=== PATIENT | male | born 1980 | race American Indian/Alaskan Native ===

== ENCOUNTER 2017-04-15 15:06 | Emergency (ER) | payer OTHER ==
[2017-04-15 15:14] VITALS: BP 141/70
[2017-04-15] MEDS ORDERED: TETRACAINE 0.5% OU ONE (17:21)
[2017-04-15] MEDS ORDERED: FUL-GLO OP ONE (17:21)
--- NOTE | 2017-04-15 17:26 | Emergency Department Report ---
Eye Injury/Foreign Body - HPI Eye Symptoms: Eye Pain: Yes, Blurred Vision: No, Eye Redness: Yes, Grinding/ Hammering Metal: No, Used Eye Protection: No, Contact Lens Use: No, Recalls Injury: No, Photophobia: No Other History: he is a 36-year-old male who presents complaining of left eye redness and pain times a couple days. Patient states he was seen up [facility] in [place] who diagnosed him with herpertic shingles in eyes and given eye drops and told to follow up with opthalmologist. Patient states he nothing fell or flew into his eyes. States he is here to get an technical data analyst referral. ED Review of Systems ROS: Stated complaint: EYE RED Other details as noted in HPI Constitutional: denies: chills, fever Eyes: eye pain, eye discharge, other. denies: vision change ENT: denies: ear pain, throat pain, dental pain, congestion Respiratory: denies: cough, shortness of breath, wheezing Cardiovascular: denies: chest pain, palpitations Endocrine: no symptoms reported Gastrointestinal: denies: abdominal pain, nausea, vomiting, diarrhea Genitourinary: denies: urgency, dysuria Musculoskeletal: denies: back pain, joint swelling, arthralgia Skin: denies: rash, lesions Neurological: denies: headache, weakness, numbness, paresthesias, confusion Psychiatric: denies: anxiety, depression Hematological/Lymphatic: denies: easy bleeding, easy bruising ED Past Medical Hx - Past Medical History Previous Medical History?: No - Surgical History Past Surgical History?: No - Social History Smoking Status: Never Smoker Substance Use Type: None Eye Injury Exam - Exam General: Vital signs noted. No distress. Alert and acting appropriately. - Visual Acuity Left Vision Acuity Degree: 20/70 Eye Exam: Left Injection, Right Mucous Discharge, Both EOMI, Neither Chemosis, Neither Abnormal Pupil, Neither Eye Foreign Body, Neither Lid Foreign Body, Neither Purulent Discharge, Neither Fluorescein Uptake, Neither Corneal Edema, Neither Photophobia Right Vision Acuity Degree: 20/40 Eye Exam: Neither Injection, Neither Chemosis, Neither Abnormal Pupil, Neither EOMI, Neither Eye Foreign Body, Neither Lid Foreign Body, Neither Mucous Discharge, Neither Purulent Discharge, Neither Fluorescein Uptake, Neither Corneal Edema, Neither Photophobia Exam: See Nurse Note for VAT ED Course Vital Signs 04/15/17 15:12 Temperature 98.0 F Pulse Rate 71 Respiratory 16 Rate Blood Pressure 141/70 O2 Sat by Pulse 99 Oximetry ED Medical Decision Making - Medical Decision Making 36-year-old male presents with herpertic keratitis and requesting for technical data analyst referral ED course: Patient is vision is intact. Patient states he was seen yesterday in [place] and his back in [place] on its referral for an technical data analyst. Reviewed his records from ER visit in [place] where he was seen yesterday. Patient was prescribed eyedrops as being using prescribed. I discussed the patient had given him 2 technical data analyst referral's to call and make an appointment to be seen immediately. Signed patient agrees and states he understands instructions and will follow-up. Critical care attestation.: If time is entered above; I have spent that time in minutes in the direct care of this critically ill patient, excluding procedure time. 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 She needed to use your eyedrops as you've been prescribed. If you have any worsening symptoms or develop new symptoms please return to ED immediately. Referrals: PRIMARY CARE, [Primary Care Provider] - 3-5 Days THOMAS SYLVESTER MD [Staff Physician] - 3-5 Days FIDENCIO ALAN MD [Staff Physician] - 3-5 Days Forms: Work/School Release Form(ED) Time of Disposition: 17:49
== END 2017-04-15 18:05 | disposition home or self-care (01) ==
LOC: ED 15:06
DX: B00.52 Herpesviral keratitis (principal)
CPT/HCPCS: 99283